=== PATIENT | male | born 1985 | race Caucasian/White ===

== ENCOUNTER 2025-03-30 07:03 | Outpatient (CLI) | payer BC, SELFPAY ==
--- NOTE | 2025-03-30 07:15 | MR_ITS ---
[facility] [address] [facility] [address] Phone:?[phone] Fax:?[phone] Referring Physician Information: SAÚL Miller [address] [facility] [address] Phone:?[phone] Fax:?[phone] Patient:?Dominic Clinton D.O.B:?1985 Sex:?Male Phone:?[phone] [facility] MRN:?[id number] Exam Date:?03/30/2025 EXAM:?MR CERVICAL SPINE WITHOUT CONTRAST CLINICAL INFORMATION: 40-year-old male with neck and right shoulder pain. COMPARISON: None.?SEDATION:?None. TECHNICAL INFORMATION: Imaging was performed at [facility]. Sagittal T2 FSE, axial MPGR and FSE T2, and sagittal T1/STIR images. INTERPRETATION: Fat suppressed images are negative for acute or subacute fractures. Unremarkable craniocervical junction. Normal vertebral artery flow voids. Intrinsically normal cord. C2-3: Normal disc margin and no spinal stenosis or facet degeneration. C3-4: Bulge abuts dural sac. No central stenosis, mild right foraminal narrowing due to uncinate process hypertrophy and mild facet degeneration. Patent left nerve root canal. C4-5: 1 mm protrusion indents dural sac. Patent foramina and unremarkable facet joints. C5-6: Mild degeneration, osteophyte and bulge/left protrusion contact/flatten the cord without central stenosis. Right foraminal disc herniation and uncovertebral hypertrophy causes severe stenosis and right C6 impingement. This is best seen on axial images 21 MPGR and 22 FSE. Mild left foraminal narrowing without exiting neural impingement. Unremarkable facet joints. C6-7: Right posterolateral to medial foraminal 3 mm AP disc herniation flattens dural sac with mild transmitted cord flattening without significant central canal stenosis. Mild medial foraminal encroachment and patent left nerve root canal. Unremarkable facet joints. C7-T1 and T1-2: Shallow disc bulges and no central stenosis. Right C7-T1 facet degeneration. CONCLUSION: 1. A moderate-sized right C5-6 foraminal disc herniation significantly impinges right C6 root. Also, left ventral cord contact by osteophyte and disc protrusion. 2. Right C6-7 posterolateral protrusion/uncovertebral osteophyte cause mild foraminal stenosis and mild transmitted right ventral cord flattening without central canal stenosis. 3. Intrinsically normal cord and no fractures or mass lesions. Electronically signed on 03/31/2025 4:21:00 PM by Darrick Rivera M.D.
--- NOTE | 2025-03-30 08:15 | CRLHL7_ITS ---
For Patients: As a result of the Century Cures Act, medical imaging exams and procedure reports are released immediately into your electronic medical record. You may view this report before your referring provider. If you have questions, please contact your health care provider. Indication: RIGHT SHOULDER PAIN LABRAL TEAR VS ROTATOR CUFF TEAR Comparison: X-rays 03/14/2025 Procedure : Informed consent was obtained. The site was marked. Time-out was performed. The skin of the right shoulder was cleansed with ChloraPrep. A sterile drape was placed. 8 cc of 1 percent lidocaine was administered for superficial anesthesia. Subsequently a 22 gauge spinal needle was introduced into the right shoulder joint under intermittent fluoroscopic guidance. Injection of 2 cc nonionic Omnipaque 240 contrast confirmed intra-articular location. Subsequently 11 cc of dilute gadolinium were injected. The needle was removed and hemostasis achieved with direct pressure. A dressing was placed. The patient tolerated the procedure well without immediate complication and was immediately sent to MRI for imaging. Total fluoroscopy time 16 seconds. Impression: Successful fluoroscopically guided right shoulder arthrogram for MRI. Dictated by Bam Chávez MD @ 03/30/2025 9:57:36 AM (Electronically Signed)
--- NOTE | 2025-03-30 09:15 | MR_ITS ---
[address] [address] Phone:?[phone] Fax:?[phone] Referring Physician Information: SAÚL Miller [address] [facility] [address] Phone:?[phone] Fax:?[phone] Patient:Mariah Clinton D.O.B:?1985 Sex:?Male Phone:?[phone] [facility] MRN:?[id number] Exam Date:?03/30/2025 EXAM: MR ARTHROGRAM of the?RIGHT?SHOULDER CLINICAL INFORMATION: Male, 40 years old, with shoulder and upper back pain INDICATION: Evaluate for labral tear or rotator cuff tear PRIOR SURGERY: None reported. PLAIN FILMS: Radiographs 03/24/2025 COMPARISONS: No prior MRIs available. TECHNICAL INFORMATION: Using a 1.5T MR scanner and a localizing surface coil: coronal obliques: PD, PDFS, T1FS sagittal obliques: PDFS, T2 axials: PD, PDFS SEDATION: None CONTRAST: No intravenous contrast was administered. FINDINGS: Bones: Proximal humerus: No fracture or marrow edema/pathology. No humeral Hill-Sachs or reverse Hill-Sachs lesion/impaction or contusion. Glenoid: No fracture or marrow edema/pathology. No osseous Bankart lesion. Rotator cuff and muscles/tendons: Supraspinatus and infraspinatus: Mild thickening with signal heterogeneity of the posterior supraspinatus and anterior infraspinatus distal tendons, without tear. No muscle belly atrophic changes. Teres minor: No tendinopathy, tear or atrophy. Subscapularis: No tendinopathy, tear or atrophy. Deltoid: No strain or atrophy. Coracoacromial arch: Acromion morphology: The acromion has type I morphology. No discrete subacromial osseous spur or os acromiale. Acromiohumeral space: The acromiohumeral space is narrowed. There is a prominent acromial attachment of the coracoacromial ligament which narrows the soft tissue distance measuring 2 mm. Coracohumeral space: The coracohumeral space is within normal limits. Acromioclavicular joint: Joint: Minimal cystic change in the distal clavicle with only minimal marrow edema. No evidence of acute injury. No inferior osteophytosis. Ligaments: Coracoclavicular ligaments are intact. Bursae: Subacromial-subdeltoid: Trace subacromial bursal thickening/bursitis. Subcoracoid: No convincing subcoracoid bursal thickening/bursitis. Biceps tendon: The long head of the biceps tendon is present within the bicipital groove. The intra-articular and extra-articular segments are intact without tendinosis, tenosynovitis, or displacement. Glenohumeral joint: Effusion/cyst: No significant glenohumeral joint effusion. Articular cartilage: There is diffuse grade 2 chondral thinning of the humeral head and glenoid articular cartilage without high-grade chondral defect. Loose bodies: No discrete intra-articular body within the joint. Labrum:?There is linear tearing along the undersurface of the posterosuperior labrum measuring approximately 1.1 cm in length. No other definite evidence for labral tear. No paralabral ganglion cyst is identified. Inferior glenohumeral ligament/axillary pouch:?Intact. The axillary pouch is normal in thickness and signal. No evidence of adhesive capsulitis or capsular injury. IMPRESSION: 1. Linear tearing of the posterosuperior labrum measuring 1.1 cm in length. 2. Mild tendinosis of the posterior supraspinatus into anterior infraspinatus distal tendons, without tear. Mild diffuse chondral thinning of the humeral head and glenoid articular cartilage without high-grade or full-thickness chondral defect. No other appearance of premature degenerative change. 3. Moderate narrowing of the acromiohumeral space predispose to clinical symptoms of subacromial impingement. 4. Trace subacromial bursitis. 5. No tendinopathy, tear, or displacement of the long head of the biceps tendon. KME Electronically signed on 03/30/2025 8:05:00 PM by Jennifer Ryan M.D.
--- OUTSIDE RECORDS SUMMARY | 2025-03-31 00:17 | XMS_ITS | Clinical Summary ---
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 Name Role Phone Unknown, Doctor Primary Care Provider Unavailabl e Allergies Active Allergy Reactions Criticality Noted Date Comments Penicillin G Benzathin,Procain Hives Medications No known medications Social History Tobacco Use Types Packs/Day Years Used Date Smoking Tobacco: Never Assessed Smokeless Tobacco: Current Chew Alcohol Use Standard Drinks/Week Comments Yes 8.3 (1 standard drink = 0.6 oz p ure alcohol) Sex and Gender Information Value Date Recorded Sex Assigned at Not on file 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 Gender Identity Not on file Sexual Orientation Not on file Obstetrics History Last Filed Vital Signs Vital Sign Reading Time Taken Comments Blood Pressure 133/83 06/17/2007 6:30 PM CDT Pulse 80 06/17/2007 6:30 PM CDT Temperature - - Respiratory Rate - - Oxygen Saturation - - Inhaled Oxygen Concentration - - Weight 80.3 kg (177 lb) 06/17/2007 6:30 PM CDT Height - - Body Mass Index - - Plan of Treatment Health Maintenance Due Date Last Done Comments Tdap 01/21/1996 Depression screening for age 12+ 1997 HIV for age 15-65 01/21/2000 BMI (ht and wt on same day) for age 18+ 2003 Hepatitis C screening for ag e 18-79 2003 Hepatitis B series for 19+ ( 1 of 3 - 19+ 3-dose series) 01/21/2004 Tetanus booster 2005 Lipids for age 35-44 01/21/2020 COVID-19 vaccine series ( - 2023- season) 2024 Influenza Vaccine (Season Ended) 2025 Pneumococcal series for age 6-49 Aged Out No longer eligible based on patient's age to complete this topic Care Teams Telephone Coin Box Collector Relationship Specialty Start Date End Date Unknown, Doctor . PCP - General 12/05/06
== END 2025-03-30 07:04 | disposition home or self-care (01) ==
LOC: MRI 07:04
PROVIDERS: PCP Family Medicine; Visit Provider Physician Assistant Surgical
DX: M25.511 Pain in right shoulder (principal); S43.491A Other sprain of right shoulder joint, initial encounter; M75.51 Bursitis of right shoulder; M54.2 Cervicalgia; M50.222 Other cervical disc displacement at C5-C6 level; M50.223 Other cervical disc displacement at C6-C7 level
CPT/HCPCS: 23350; 72141; 73222; 77002; A9575

== ENCOUNTER 2025-05-09 07:28 | Outpatient (RCR) | payer BC, SELFPAY | END 2025-09-06 23:59 | disposition home or self-care (01) | PROVIDERS: PCP Family Medicine; Visit Provider Physician Assistant Surgical | DX: S43.431D Superior glenoid labrum lesion of right shoulder, subsequent encounter (principal); M25.511 Pain in right shoulder; Z51.89 Encounter for other specified aftercare | CPT/HCPCS: 97110; 97162 ==